=== PATIENT | female | born 1955 | race Caucasian/White ===

== ENCOUNTER 2022-05-20 14:45 | Outpatient (CLI) | payer MEDICARE, OTHER, SELFPAY ==
--- NOTE | 2022-05-20 15:00 | USCV_ITS ---
Karon Ervin Age: 67 Gender: F : 1955 Exam Date: 05/20/2022 15:27 Ordering Phys: Navarro Soares MD ([email or web address]) Technologist: Exam Location: [facility] [place] Indication: chest pain BP: 157 / 80 HR: 67 Rhythm: Sinus Technical Quality: Adequate MEASUREMENTS (Male / Female) Normal Values 2D ECHO LV Diastolic Diameter PLAX 4.0 cm 4.2 - 5.9 / 3.9 - 5.3 cm LV Systolic Diameter PLAX 2.1 cm IVS Diastolic Thickness 1.4 cm 0.6 - 1.0 / 0.6 - 0.9 cm IVS Systolic Thickness 1.7 cm LVPW Diastolic Thickness 1.4 cm 0.6 - 1.0 / 0.6 - 0.9 cm LVPW Systolic Thickness 1.4 cm LVOT Diameter 2.0 cm LV Ejection Fraction 2D Teich 80.1 % LV Ejection Fraction MOD 2C 57.9 % LV Ejection Fraction 2C AL 59.4 % LA Diameter 4.3 cm Aorta at Sinotubular Diameter 2.5 cm M-MODE Aortic Annulus Diameter 3.5 cm LA Ao Ratio MM 1.3 MV E Point Septal Separation 1.1 cm DOPPLER AV Peak Velocity 149.7 cm/s LVOT Peak Velocity 110.0 cm/s AV Area Cont Eq vti 2.5 cm squared AV Area Cont Eq pk 2.4 cm squared MV Area PHT 5.0 cm squared Mitral E to A Ratio 1.1 MV E' Velocity 60.5 cm/s Mitral E to MV E' Ratio 12.1 Mitral E to LV E' Lateral Ratio 11.3 Mitral E to LV E' Septal Ratio 13.3 TR Peak Velocity 340.0 cm/s TR Peak Gradient 46.2 mmHg TV Peak E Velocity 102.0 cm/s Right Atrial Pressure 3.0 mmHg Pulmonary Artery Systolic Pressu 49.2 mmHg RV Acceleration Time 0.2 s FINDINGS Left Ventricle Normal left ventricular size and systolic function, EF 66 %. Mild left ventricular hypertrophy. No regional wall motion abnormalities. Grade II/IV diastolic dysfunction, moderately elevated filling pressures. Right Ventricle The right ventricle is normal in size and function. Right Atrium The right atrium is normal in size. Left Atrium Mildly increased left atrial size. Mitral Valve Trace mitral valve regurgitation. Aortic Valve Thickened aortic valve. Tricuspid Valve Trace tricuspid valve regurgitation. Pulmonic Valve Pulmonic valve not well visualized. Pericardium Normal pericardium without effusion. Aorta Normal ascending aorta dimension. IVC Inferior vena cava not visualized. CONCLUSIONS Normal left ventricular size and systolic function, EF 66 %. Mild left ventricular hypertrophy. No regional wall motion abnormalities. Grade II/IV diastolic dysfunction, moderately elevated filling pressures. Thickened aortic valve. Trace of mitral and tricuspid regurgitation There is no pericardial effusion. There are no intracardiac masses. No similar previous studies are available for comparison Dr Navarro Soares MD [facility] (Electronically Signed) Final Date: 21 May 2022 09:54 S
== END 2022-05-20 14:46 | disposition home or self-care (01) ==
LOC: RAD 14:54
PROVIDERS: PCP Family Medicine; Visit Provider Internal Medicine Cardiovascular Disease
DX: I25.810 Atherosclerosis of coronary artery bypass graft(s) without angina pectoris (principal); R06.09 Other forms of dyspnea; Z95.1 Presence of aortocoronary bypass graft; I11.9 Hypertensive heart disease without heart failure; I35.8 Other nonrheumatic aortic valve disorders; I34.0 Nonrheumatic mitral (valve) insufficiency; I07.1 Rheumatic tricuspid insufficiency
CPT/HCPCS: 93306; 99215

== ENCOUNTER → 2022-07-29 09:27 | Outpatient (BNVA) | payer MEDICARE, OTHER, SELFPAY | PROVIDERS: PCP Family Medicine; Visit Provider Family Medicine | DX: E78.5 Hyperlipidemia, unspecified (principal); I10 Essential (primary) hypertension; I25.810 Atherosclerosis of coronary artery bypass graft(s) without angina pectoris; R53.83 Other fatigue; I25.119 Atherosclerotic heart disease of native coronary artery with unspecified angina pectoris | CPT/HCPCS: 80053; 80061; 84443; 85025 ==

== ENCOUNTER 2023-01-13 13:18 | Outpatient (CLI) | payer MEDICARE, OTHER, SELFPAY ==
--- NOTE | 2023-01-13 13:26 | MM_ITS ---
WS: [id number] BILATERAL 3D TOMOSYNTHESIS DIGITAL SCREENING MAMMOGRAPHY WITH CAD CLINICAL INFORMATION: Z00.00 - Encounter for general adult medical examination ... HISTORY: Screening mammogram. No current complaints. COMPARISON: 2009 TECHNIQUE: Bilateral CC and MLO views. FINDINGS: Scattered fibroglandular densities bilaterally. Nodular breast parenchyma bilaterally RIGHT greater t rubin LEFT. No suspicious focal mass, asymmetry, calcifications, or architectural distortion. No eviden ce of malignancy. Punctate and lucent centered calcifications. IMPRESSION: MM/[place] [id number] BI-RADS: 2-Benign FOLLOW UP: 1 Year Follow-up Recommend return to annual screening mammography.
== END 2023-01-13 13:19 | disposition home or self-care (01) ==
LOC: RAD 13:18
PROVIDERS: PCP Family Medicine; Visit Provider Family Medicine
DX: Z12.31 Encounter for screening mammogram for malignant neoplasm of breast (principal)
CPT/HCPCS: 77063; 77067

== ENCOUNTER 2023-02-25 09:38 | Outpatient (CLI) | payer MEDICARE, OTHER, SELFPAY ==
--- NOTE | 2023-02-25 09:45 | XR_ITS ---
WS: [id number] Exam: XR chest 2V* [id number] Date/Time of Exam: 02/25/2023 10:37 AM Reason For Exam: cough No priors. The lungs are clear and fully expanded. Unremarkable cardiomediastinal silhouette. Signs of previous CABG surgery. No pleural effusions. Dextroscoliosis of the T-spine. Increased kyphosis. IMPRESSION: 1. No acute cardiopulmonary finding.
== END 2023-02-25 09:39 | disposition home or self-care (01) ==
PROVIDERS: PCP Family Medicine; Visit Provider Family Medicine
DX: R06.02 Shortness of breath (principal); R52 Pain, unspecified; R53.83 Other fatigue; Z95.1 Presence of aortocoronary bypass graft
CPT/HCPCS: 71046; 80053; 83880; 84443; 84550; 85025; 86140

== ENCOUNTER 2023-09-28 12:07 | Emergency (ER) | payer MEDICARE, OTHER, SELFPAY ==
[2023-09-28 12:37] VITALS: BP 162/67; PULSE 58; RESP 18; TEMP 36.8; O2SAT 98; BMI 33.3
--- NOTE | 2023-09-28 12:42 | CTR_ITS ---
PROCEDURE INFORMATION: Exam: CT Chest Without Contrast; Diagnostic Exam date and time: 09/28/2023 12:54 PM Age: 68 years old Clinical indication: Injury or trauma; Fall; Blunt trauma (contusions or hematomas); Prior surgery; Surgery date: 6+ months; Surgery type: Heart, gb; Additional info: Traumatic left chest pain TECHNIQUE: Imaging protocol: Diagnostic computed tomography of the chest without contrast. Radiation optimization: All CT scans at this facility use at least one of these dose optimization techniques: automated exposure control; mA and/or kV adjustment per patient size (includes targeted exams where dose is matched to clinical indication); or iterative reconstruction. COMPARISON: CR XR chest 2V* [id number] 02/25/2023 10:38 AM RADIATION DOSE METRICS: Total DLP (mGy-cm): 737.27 FINDINGS: Trachea: Imaged portions of the distal trachea, as well as right and left mainstem bronchi are patent. Lungs: Small nodular calcification in the right upper lobe consistent with a healed granuloma. Linear density in the right lower lobe consistent with atelectasis or scarring. Dependent density in the left lower lobe towards the costophrenic angle suggesting small area of atelectasis with adjacent small pleural effusion of up to 1 cm thickness. Pleural spaces: No pneumothorax identified. Trace left-sided pleural effusion. Heart: The heart is not enlarged. No pericardial effusion. Coronary arteries: Findings of prior CABG. Coronary artery atherosclerosis. Mediastinal space: No pneumomediastinum evident. Lymph nodes: Within the limits of noncontrast technique, no definite mediastinal or hilar adenopathy identified. Vasculature: The thoracic aorta is not enlarged. Bones/joints: Skeletal windows demonstrate slight anterior wedge compression deformity of the T6, and T10 through T12 vertebral bodies. These are favored chronic. A T12 superior endplate Schmorl's node is present. Findings consistent with a vertebral body hemangioma in T11. There is trace retrolisthesis of T12 on L1 prior median sternotomy. A nonsegmental fracture of the left 5th rib (0426) and 6th rib are noted anterolaterally. Soft tissues: There is left lateral chest wall contusion overlying the site of rib fracture. . 3 Other findings: Imaged upper abdomen demonstrates no acute appearing abnormality. A right adrenal 3.1 x 2.5 cm nodule is present measuring +13 HU, indeterminate. Surgical clips consistent with a prior cholecystectomy. CT/CT chest wo con [id number] IMPRESSION: 1. Acute nonsegmental fractures of the anterolateral aspect of the left 5th and 6th ribs with overlying soft tissue contusion. 2. Trace left-sided pleural effusion, no pneumothorax identified. 3. Right adrenal 3.1 x 2.5 cm nodule. In the absence of prior studies to confirm satisfactory correction stability, would recommend an adrenal washout protocol CT on a nonemergent basis. Alternatively, chemical shift MRI could be considered. COMMENTS: Consistent with the [employer]'s Incidental Findings Committee white paper (J Am Demetrio Radiol 2017): For any incidental adrenal lesion greater than or equal to 1 cm but less than or equal to 4 cm classified in this report as benign, likely benign, or containing fat (including classification as an adenoma or myelolipoma), no follow-up imaging is recommended per consensus recommendations based on imaging criteria. Further lab evaluation could be pursued if warranted based on clinical findings.
[2023-09-28 12:48] LABS: Basophils # 0.1 10^3/uL (0.0-0.1); Basophils % 1.1 %; Eosinophils # 0.2 10^3/uL (0.0-0.8); Eosinophils % 2.3 %; Hematocrit 44.1 % (36-47); Lymphocytes # 1.7 10^3/uL (0.8-4.8); Lymphocytes % 16.6 %; Mean Corpuscular Hemoglobin 29.1 pg (27-33); Mean Corpuscular Volume 85.5 fl (85-98); Mean Platelet Volume 10.8 fL (7.4-10.4); Monocytes # 0.6 10^3/uL (0.2-0.9); Monocytes % 6.4 %; Neutrophils # 7.34 10^3/uL (1.8-7.7); Neutrophils % 73.2 %; Nucleated Red Blood Cells % 0 %; Platelet Count 320 10^3/cmm (157-399); Red Blood Count 5.16 10^6/uL (3.85-5.65); White Blood Count 10.02 10^3/uL (3.29-11.43)
--- NOTE | 2023-09-28 12:59 | ED_ITS ---
HPI - Fall 2 General: Chief Complaint: Abdominal Pain Stated Complaint: abd pain Time Seen by Provider: 09/28/23 12:42 History of Present Illness: 68-year-old female with a history of cor onary artery disease and hypertension who presents to the emergency room with left-sided anterior and lateral rib pain after a fall a couple of days ago. She has had a CABG in the past and she was concerned she might have dislocated some of the hardware. Says it hurts to breathe but is not overtly short of breath. No cough. No fever. She did not hit her head. No altered mental status. No focal motor deficits. Review of Systems 2 Narrative: Constitutional symptoms: Negative except as documented in HPI. Skin symptoms: Negative except as documented in HPI. Eye symptoms: Negative except as documented in HPI. ENMT symptoms: Negative except as documented in HPI. Respiratory symptoms: Negative except as documented in HPI. Cardiovascular symptoms: Negative except as documented in HPI. Gastrointestinal symptoms: Negative except as documented in HPI. Genitourinary symptoms: Negative except as documented in HPI. Musculoskeletal symptoms: Negative except as documented in HPI. Neurologic symptoms: Negative except as documented in HPI. Psychiatric symptoms: Negative except as documented in HPI. Endocrine symptoms: Negative except as documented in HPI. PFSH ED 2 PFSH: Medical History Osteoarthritis Family hx of colon cancer Dyspareunia CAD (coronary atherosclerotic disease) Obesity SOB (shortness of breath) Fatigue HTN (hypertension) Surgical History S/P CABG (coronary artery bypass graft) History of tubal ligation H/O: hysterectomy History of dilation and curettage Family History Father Hypertension CAD (coronary artery disease) Dementia Brother Cancer Mother CAD (coronary artery disease) Family/Other CAD (coronary artery disease) Cancer Brother Cancer Chronic kidney disease (CKD) Brother Cancer Sister Cancer Denies family history of Diabetes Clotting disorder Suicide Anesthesia complication Bleeding disorder Lung disease Stroke Social History Smoking and tobacco/nicotine status: never used tobacco/nicotine Alcohol intake: never Substance/Drug Use: never Household members: spouse Marital status: service: No Current occupational status: employed Current gender identity: Female Radha/Methodist: Taoism Physical Exam 2 Narrative: EXAM NARRATIVE: General: Alert, no acute distress. Skin: Warm, dry. Head: Normocephalic, atraumatic. Neck: Supple, trachea midline. Eye: Extraocular movements are intact. Ears, nose, mouth and throat: mucosa moist. Cardiovascular: Regular, Normal peripheral perfusion. Respiratory: Lungs are clear to auscultation, respirations are non-labored, breath sounds are equal, Symmetrical chest wall expansion. Tenderness over the left lateral and anterior middle ribs. No obvious deformity. Gastrointestinal: Soft, Nontender, Non distended, Normal bowel sounds. Musculoskeletal: Normal ROM, no deformity. Neurological: Alert and oriented, No focal neurological deficit observed. Psychiatric: Cooperative, appropriate mood & affect. Course 2 Vital Signs: Vital signs: Vital Signs Temperature 98.2 F 09/28/23 12:37 Pulse Rate 58 L 09/28/23 13:05 Respiratory Rate 18 09/28/23 12:37 Blood Pressure 137/93 09/28/23 13:05 Pulse Oximetry 98 09/28/23 13:05 Oxygen Delivery Me thod Room Air 09/28/23 13:05 MDM - Fall Medical Decision Making Medical decision making: Differential diagnosis including but not limited to and based on the above HPI, review of systems and physical exam: Patient with traumatic chest pain. CT without contrast ordered to rule out rib fractures and pneumothorax or hemothorax or pulmonary contusion. Orders placed to evaluate differential diagnosis based on the above differential, HPI and physical exam CT of the chest without contrast: This was reviewed and interpreted by myself the emergency room physician. I also reviewed the radiology report. Radiology report listed below. 1. Acute nonsegmental fractures of the anterolateral aspect of the left 5th and 6th ribs with overlying soft tissue contusion. 2. Trace left-sided pleural effusion, no pneumothorax identified. 3. Right adrenal 3.1 x 2.5 cm nodule. In the absence of prior studies to confirm satisfactory shelter stability, would recommend an adrenal washout protocol CT on a nonemergent basis. Alternatively, chemical shift MRI could be considered. I reviewed the patient's medical record. Reexamination: Patient remained stable. No increased work of breathing. She continues to have pain in her left ribs. No altered mental status. No focal motor deficits. We discussed the pulmonary nodule and that she needs repeat imaging. Discussed incentive spirometry. Assessment and plan: Rib fractures Pulmonary nodule - 1999+ Incentive spirometry ? [place] in the emergency room. Incentive spirometry. - Discharged home - Discussed plan with patient. Answered any questions. - Evaluation and treatment of this problem were appropriate in the emergency setting. Lab Data 09/28/23 12:37 09/28/23 12:[address] 09/28/23 12:42 IMPRESSION: 1. Acute nonsegmental fractures of the anterolateral aspect of the left 5th and 6th ribs with overlying soft tissue contusion. 2. Trace left-sided pleural effusion, no pneumothorax identified. 3. Right adrenal 3.1 x 2.5 cm nodule. In the absence of prior studies to confirm satisfactory intermodal truck driver stability, would recommend an adrenal washout protocol CT on a nonemergent basis. Alternatively, chemical shift MRI could be considered. COMMENTS: Consistent with the [employer]'s Incidental Findings Committee white paper (J Am Demetrio Radiol 2017): For any incidental adrenal lesion greater than or equal to 1 cm but less than or equal to 4 cm classified in this report as benign, likely benign, or containing fat (including classification as an adenoma or myelolipoma), no follow-up imaging is recommended per consensus recommendations based on imaging criteria. Further lab evaluation could be pursued if warranted based on clinical findings. Laboratory Results WBC 10.02 10^3/uL (3.29-11.43) 09/28/23 12:37 RBC 5.16 10^6/uL (3.85-5.65) 09/28/23 12:37 Hgb 15.00 g/dL (11.27-16.99) 09/28/23 12:37 Hct 44.1 % (36-47) 09/28/23 12:37 MCV 85.5 fl (85-98) 09/28/23 12:37 MCH 29.1 pg (27-33) 09/28/23 12:37 MCHC 34.0 g/dL (30-55) 09/28/23 12:37 RDW 13.0 % (12.1-15.1) 09/28/23 12:37 Plt Count 320 10^3/cmm (157-399) 09/28/23 12:37 MPV 10.8 fL (7.4-10.4) H 09/28/23 12:37 Neut % (Auto) 73.2 % 09/28/23 12:37 Lymph % (Auto) 16.6 % 09/28/23 12:37 Lamb % (Auto) 6.4 % 09/28/23 12:37 Eos % (Auto) 2.3 % 09/28/23 12:37 Baso % (Auto) 1.1 % 09/28/23 12:37 Neut # (Auto) 7.34 10^3/uL (1.8-7.7) 09/28/23 12:37 Lymph # (Auto) 1.7 10^3/uL (0.8-4.8) 09/28/23 12:37 Lamb # (Auto) 0.6 10^3/uL (0.2-0.9) 09/28/23 12:37 Eos # (Auto) 0.2 10^3/uL (0.0-0.8) 09/28/23 12:37 Baso # (Auto) 0.1 10^3/uL (0.0-0.1) 09/28/23 12:37 Nucleated RBC % (auto) 0 % 09/28/23 12:37 Nucleated RBCs # 0.0 /100WBC 09/28/23 12:37 Sodium Cancelled 09/28/23 12:37 Potassium Cancelled 09/28/23 12:37 Chloride Cancelled 09/28/23 12:37 Carbon Dioxide Cancelled 09/28/23 12:37 Anion Gap Cancelled 09/28/23 12:37 BUN Cancelled 09/28/23 12:37 Creatinine Cancelled 09/28/23 12:37 GFR Calculation Cancelled 09/28/23 12:37 Glucose Cancelled 09/28/23 12:37 Calculated Osmolality Cancelled 09/28/23 12:37 Calcium Cancelled 09/28/23 12:37 Total Bilirubin Cancelled 09/28/23 12:37 AST Cancelled 09/28/23 12:37 ALT Cancelled 09/28/23 12:37 Alkaline Phosphatase Cancelled 09/28/23 12:37 Total Protein Cancelled 09/28/23 12:37 Albumin Cancelled 09/28/23 12:37 Globulin Cancelled 09/28/23 12:37 Lipase Cancelled 09/28/23 12:37 All radiology interpretation(s) finalized by discharge Discharge Plan Discharge Patient Disposition: Home Clinical Impression: Incidental pulmonary nodule Rib fractures Qualifiers: Encounter type: initial encounter Fracture type: closed Laterality: left Q ualified Code(s): S22.42XA - Multiple fractures of ribs, left side, initial encounter for closed fracture Condition: Stable Prescriptions: New hydrocodone-acetaminophen 5-325 mg tablet 1 tab PO Q6H PRN (Reason: pain) Qty: 30 0RF Miralax 17 gram/dose powder 17 g PO DAILY Qty: 510 0RF Rx Instructions: Take 1 scoop daily while taking pain medications. diclofenac sodium 50 mg tablet,delayed release (DR/EC) 50 mg PO Q12H Qty: 20 0RF No Action aspirin [Adult Low Dose Aspirin] 81 mg tablet,delayed release (DR/EC) 81 mg PO DAILY metoprolol tartrate 50 mg tablet 50 mg PO BID 30 Days Qty: 60 11RF prednisone 20 mg tablet 20 mg PO DAILY Qty: 5 0RF Rx Instructions: take with food. meloxicam 15 mg tablet See Rx Instructions .ROUTE .COMPLEX Qty: 90 3RF Dose Instruction: TAKE 1 TABLET BY MOUTH EVERY DAY Rx Instructions: TAKE 1 TABLET BY MOUTH EVERY DAY citalopram 20 mg tablet See Rx Instructions .ROUTE .COMPLEX Qty: 90 11RF Dose Instruction: TAKE 1 TABLET BY MOUTH EVERY DAY Rx Instructions: TAKE 1 TABLET BY MOUTH EVERY DAY albuterol sulfate [Ventolin HFA] 90 mcg/actuation HFA aerosol inhaler 2 puff inhalation Q6H PRN (Reason: shortness of breath or wheezing) Qty: 8.5 11RF Mounjaro 2.5 mg/0.5 mL pen injector 2.5 mg SUBCUT .weekly Qty: 2 11RF losartan 100 mg tablet 100 mg PO DAILY Qty: 30 11RF Rx Instructions: MUST make follow-up for further refills alprazolam 0.5 mg tablet 0.5 mg PO DAILY Qty: 30 5RF nitroglycerin 0.4 mg tablet, sublingual See Rx Instructions .ROUTE .COMPLEX Qty: 25 0RF Dose Instruction: DISSOLVE ONE TABLET UNDER THE TONGUE EVERY 5 MINUTES NEEDED FOR CHEST PAIN. DO NOT EXCEED A TOTAL OF 3 DOSES IN 15 MINUTES Rx Instructions: DISSOLVE ONE TABLET UNDER THE TONGUE EVERY 5 MINUTES NEEDED FOR CHEST PAIN. DO NOT EXCEED A TOTAL OF 3 DOSES IN 15 MINUTES hydrochlorothiazide 25 mg tablet 25 mg PO QAM Qty: 90 3RF Discharge Orders: Discharge ED (Routine); Ordered 09/28/23 Ordered By: Evette Crow Referrals: Josh Polk MD [Primary Care Provider] - 4-7 days Discharge Diet: Usual diet Discharge Activity: Increase activity as tolerated Patient Instructions: How to Use an Incentive Spirometer (ED), Rib Fracture (ED), Opioid Safety, Pain Management Activity Restrictions/Additional Instructions: Please use your incentive spirometer 3-4 times a day. A good time to do this is when your pain medication is working so that you can get good deep breaths. This will prevent pneumonia A pulmonary nodule was seen on imaging. This will need follow up imaging with your primary provider. Please schedule an appointment concerning this. You have been screened and evaluated and felt safe for discharge. Health conditions do change or evolve sometimes and as such it is important that you follow up with your Primary Doctor to be re checked, 3-5 days is a general good time frame for follow up. You are always welcome to return to the ED for re assessment if your symptoms are worsening or you have new concerns Coding Level of Care Code ED Shoulder Puncher for Parish Parikh
[2023-09-28 13:05] VITALS: BP 137/93; PULSE 58; O2SAT 98
[2023-09-28] MEDS: HYDROcodone-acetaminophen 10-325 mg Tablet 1 TAB PO (13:11)
[2023-09-28] MEDS: ondansetron 4 MG Tablet PO (13:16)
[2023-09-28 16:02] VITALS: BP 137/93; PULSE 58; RESP 18; TEMP 36.8; O2SAT 98
== END 2023-09-28 16:03 | disposition home or self-care (01) ==
PROVIDERS: Emergency Medicine; Emergency Provider Emergency Medicine; PCP Family Medicine
DX: S22.42XA Multiple fractures of ribs, left side, initial encounter for closed fracture (principal); R91.1 Solitary pulmonary nodule; Z79.82 Long term (current) use of aspirin; Z79.85 Long-term (current) use of injectable non-insulin antidiabetic drugs; I25.10 Atherosclerotic heart disease of native coronary artery without angina pectoris; I10 Essential (primary) hypertension; Z95.1 Presence of aortocoronary bypass graft; W19.XXXA Unspecified fall, initial encounter
CPT/HCPCS: 36415; 71250; 85025; 99284; Q0162

== ENCOUNTER 2024-10-10 10:20 | Emergency (ER) | payer MEDICARE, OTHER, SELFPAY ==
--- NOTE | 2024-10-10 10:21 | XRR_ITS ---
PROCEDURE INFORMATION: Exam: XR Right Knee Exam date and time: 10/10/2024 10:34 AM Age: 69 years old Clinical indication: Injury or trauma; Swelling (edema); Right; RT knee pain x 1 week; [place] pop while walking; Pain/swelling sinc TECHNIQUE: Imaging protocol: Radiologic exam of the right knee. Views: 3 views. COMPARISON: No relevant prior studies available. FINDINGS: Bones/joints: Surgical clips are seen medial to the proximal tibia. No fractures or dislocations. Soft tissues: Normal. XR/XR knee RT 3V* [id number] IMPRESSION: No acute findings.
[2024-10-10 10:23] VITALS: BP 176/65; PULSE 61; TEMP 36.9; O2SAT 97; BMI 33.3
--- OUTSIDE RECORDS SUMMARY | 2024-10-10 10:32 | XMS_ITS | Clinical Summary ---
Author Organization [facility] Address [address] Johnson: Epic Prelude ADT [place] [address] Care Team Providers Care Particle Board Supervisor Name Role Phone Salinas Martines MD Primary Care Provider + Allergies No known active allergies Active Problems Problem Noted Date Diagnosed Date HTN (hypertension), benign 11/28/2014 Anxiety 11/28/2014 Atherosclerosis of coronary artery bypass graft of [place] heart without angina pectoris 11/28/2014 Hx of CABG 11/28/2014 Family history of colon cancer 11/28/2014 Obesity (BMI 35.0-39.9 without comorbidity) 11/12 Family History Medical History Relation Name Comments Colon Cancer Brother 1 Healthy Father Healthy Mother Relation Name Status Comments Brother 1 Brother 2 Father Mother Social History Tobacco Use Types Packs/Day Years Used Date Smoking Tobacco: Never Comments Unknown Sex and Gender Information Value Date Recorded Sex Assigned at Not on file 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 Gender Identity Not on file Sexual Orientation Not on file Last Filed Vital Signs Vital Sign Reading Time Taken Comments Blood Pressure 160/96 05/15/2015 11:44 AM BREAKER OPERATOR Pulse 81 05/15/2015 11:44 AM BREAKER OPERATOR Temperature - - Respiratory Rate - - Oxygen Saturation - - Inhaled Oxygen Concentration - - Weight 99.7 kg (219 lb 14.4 oz) 016 11:44 AM BREAKER OPERATOR Height 165.1 cm (5' 5 ) 05/15/2015 11:4 4 AM BREAKER OPERATOR Body Mass Index 36.59 05/15/2015 11:44 AM BREAKER OPERATOR Plan of Treatment Health Maintenance Due Date Last Done Comments DTAP/TDAP/TD VACCINES (1 - Tdap) 1973 BREAST CANCER SCREENING 1994 COLORECTAL SCREENING 1999 Colorectal Cancer Screening 1999 FIT-DNA Q 3 years 1999 FIT/FOBT Q 1 year 1999 Flex Sig/CT Colonography Q 5 years 1999 PNEUMOCOCCAL VACCINE 50+ YEARS (1 of 1 - PCV) 03/06/20 04 ZOSTER VACCINE (1 of 2) 2004 OSTEOPOROSIS SCREENING 2019 INFLUENZA VACCINE (#1) 2023 RSV VACCINE (60+ or ) (1 - 1-dose 75+ series) 2029 Care Teams Particle Board Supervisor Relationship Specialty Start Date End Date Salinas Martines MD [address] [phone] PCP - General Family Practice 02/27/15
--- OUTSIDE RECORDS SUMMARY | 2024-10-10 10:32 | XMS_ITS | Encounter Summary ---
Author Organization [facility] Address [address] [place] [address] Care Team Providers Care Sailmaker Name Role Phone Salinas Martines MD Primary Care Provider + Encounter Details Date Type Department Care Team (Latest Contact Info) Description 07/06/2003 Outpatient Historical [facility] Medicine[address] [phone] Brock Kemp MD [address] [place] [address] ALLERGY, UNSPECIFIED (Primary Dx); URIN TRACT INFECTION NOS Social History Tobacco Use Types Packs/Day Years Used Date Smoking Tobacco: Never Assessed Comments Unknown Sex and Gender Information Value Date Recorded Sex Assigned at Not on file 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
--- OUTSIDE RECORDS SUMMARY | 2024-10-10 10:32 | XMS_ITS | Encounter Summary ---
Author Organization [facility] Address [address] [place] [address] Care Team Providers Care Thermo Processor Name Role Phone Salinas Martines MD Primary Care Provider + Encounter Details Date Type Department Care Team (Latest Contact Info) Description 08/27/2001 Outpatient Historical [facility] Medicine[address] [phone] Israel Gomes MD [address] [facility] [facility] [address] [place] [address] OTHER MALAISE AND FATIGUE (Primary Dx); PALPITATIONS; HYPERTENSION NOS; ALLERGY, UNSPECIFIED Social History Tobacco Use Types Packs/Day Years Used Date Smoking Tobacco: Never Assessed Comments Unknown Sex and Gender Information Value Date Recorded Sex Assigned at Not on file Legal Sex Female 5:[address] Gender Identity Not on file Sexual Orientation Not on file documented as of this encounter Plan of Treatment Not on file documented as of this encounter Visit Diagnoses Diagnosis Other malaise and fatigue- Primary Palpitations Unspecified essential hypertension Allergy, unspecified not elsewhere classified documented in this encounter Care Teams Thermo Processor Relationship Specialty Start Date End Date Salinas Martines MD [address] [facility] [address] [place] [phone] PCP - General Family Practice 02/27/15 documented as of this encounter
--- OUTSIDE RECORDS SUMMARY | 2024-10-10 10:32 | XMS_ITS | Encounter Summary ---
Author Organization [facility] Address [address] [place] [address] Care Team Providers Care Director Of Product Development Name Role Phone Salinas Martines MD Primary Care Provider + Encounter Details Date Type Department Care Team (Latest Contact Info) Description 10/14/2001 Outpatient Historical [facility] Medicine[address] [phone] Steffen Desir MD [address] [place] [phone] ACUTE TONSILLITIS (Primary Dx) Social History Tobacco Use Types Packs/Day Years Used Date Smoking Tobacco: Never Assessed Comments Unknown Sex and Gender Information Value Date Recorded Sex Assigned at Not on file 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
--- OUTSIDE RECORDS SUMMARY | 2024-10-10 10:32 | XMS_ITS | Clinical Summary ---
Author Organization [facility] Address [address] [place] [address] Care Team Providers Care Test Development Engineer Name Role Phone Salinas Martines MD Primary Care Provider + Allergies No known active allergies Medications sertraline (ZOLOFT) 100 mg tablet Take 100 mg by mouth daily. Active aspirin (FOSTER CHEWABLE) 81 mg Tablet, Chewable Take 81 mg by mouth daily. Active atorvastatin (LIPITOR) 20 mg tablet Take 1 Tablet (20 mg) by mouth Daily LATE. 30 Tablet 5 12/02/2014 Active amLODIPine (NORVASC) 10 mg tabletIndicatio ns:HTN (hypertension), benign Take 1 Tablet (10 mg) by mouth daily. 30 Tablet 11 05/24/2015 Active diclofenac sodium (VOLTAREN) 75 mg Tablet, Delayed Release (E.C.) Take 1 Tablet (75 mg) by mouth 2 times daily as needed for Pain. 60 Tablet 1 02/22/2016 Active hydroCHLOROthia zide 25 mg tablet Take 1 Tablet (25 mg) by mouth daily. 90 Tablet 3 04/03/2016 Active losartan (COZAAR) 50 mg tablet Take 2 Tablets (100 mg) by mouth daily. 60 Tablet 11 07/24/2016 Active Active Problems Problem Noted Date Diagnosed Date HTN (hypertension), benign 11/28/2014 Anxiety 11/28/2014 Atherosclerosis of coronary artery bypass graft of [place] heart without angina pectoris 11/28/2014 Hx of CABG 11/28/2014 Family history of colon cancer 11/28/2014 Obesity (BMI 35.0-39.9 without comorbidity) 11/12 Family History Medical History Relation Name Comments Colon Cancer Brother Healthy Father Healthy Mother Relation Name Status Comments Brother Father Mother Social History Tobacco Use Types Packs/Day Years Used Date Smoking Tobacco: Never Comments No Sex and Gender Information Value Date Recorded Sex Assigned at Not on file Legal Sex Female 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 MANAGER Gender Identity Not on file Sexual Orientation Not on file Last Filed Vital Signs Vital Sign Reading Time Taken Comments Blood Pressure 160/96 05/15/2015 11:44 AM DEPUTY PROGRAM MANAGER Pulse 81 05/15/2015 11:44 AM DEPUTY PROGRAM MANAGER Temperature - - Respiratory Rate - - Oxygen Saturation 98% 05/15/2015 11: 44 AM DEPUTY PROGRAM MANAGER Inhaled Oxygen Concentration - - Weight 99.7 kg (219 lb 14.4 oz) 016 11:44 AM DEPUTY PROGRAM MANAGER Height 165.1 cm (5' 5 ) 05/15/2015 11:4 4 AM DEPUTY PROGRAM MANAGER Body Mass Index 36.59 05/15/2015 11:44 AM DEPUTY PROGRAM MANAGER Plan of Treatment Health Maintenance Due Date Last Done Comments DTAP/TDAP/TD VACCINES (1 - Tdap) 1973 BREAST CANCER SCREENING 1994 COLORECTAL SCREENING 1999 Colorectal Cancer Screening 1999 FIT-DNA Q 3 years 1999 FIT/FOBT Q 1 year 1999 Flex Sig/CT Colonography Q 5 years 1999 PNEUMOCOCCAL VACCINE 50+ YEARS (1 of 1 - PCV) 03/06/20 04 ZOSTER VACCINE (1 of 2) 2004 RSV VACCINE (60+ or ) (1 - Risk 60-74 years 1-dose series) 2014 OSTEOPOROSIS SCREENING 2019 INFLUENZA VACCINE (#1) 2023 Preventative Visit- Commercial 04/14/2024 11/28/2014 Insurance BS Care Teams Test Development Engineer Relationship Specialty Start Date End Date Salinas Martines MD [address] [phone] PCP - General Family Practice 02/27/15
--- OUTSIDE RECORDS SUMMARY | 2024-10-10 10:33 | XMS_ITS | Encounter Summary ---
Author Organization [facility] Address [address] [place] [address] Care Team Providers Care Iron Miner Blasting Name Role Phone Salinas Martines MD Primary Care Provider + Encounter Details Date Type Department Care Team (Latest Contact Info) Description 01/16/2001 Outpatient Historical [facility] Family Medicine- [address] [phone] Israel Gomes MD [address] [facility] [address] [place] [address] Unspecified essential hypertension (Primary Dx); Acute frontal sinusitis Social History Tobacco Use Types Packs/Day Years Used Date Smoking Tobacco: Never Assessed Comments Unknown Sex and Gender Information Value Date Recorded Sex Assigned at Not on file 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
--- OUTSIDE RECORDS SUMMARY | 2024-10-10 10:33 | XMS_ITS | Encounter Summary ---
Author Organization [facility] Address [address] [place] [address] Care Team Providers Care Tap Grinder Name Role Phone Salinas Martines MD Primary Care Provider + Encounter Details Date Type Department Care Team (Latest Contact Info) Description 07/30/1999 Outpatient Historical [facility] Medicine[address] [phone] Israel Gomes MD [address] [facility] [address] [place] [address] Otalgia, unspecified (Primary Dx); Allergy, unspecified not elsewhere classified; Other malaise and fatigue Social History Tobacco Use Types Packs/Day Years Used Date Smoking Tobacco: Never Assessed Comments Unknown Sex and Gender Information Value Date Recorded Sex Assigned at Not on file 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
--- OUTSIDE RECORDS SUMMARY | 2024-10-10 10:33 | XMS_ITS | Encounter Summary ---
Author Organization [facility] Address [address] [place] [address] Care Team Providers Care Sueding And Buffing Machine Operator Name Role Phone Salinas Martines MD Primary Care Provider + Encounter Details Date Type Department Care Team (Latest Contact Info) Description 04/11/1999 Outpatient Historical [facility] Medicine[address] [phone] Israel Gomes MD [address] [facility] [address] [place] [address] Influenza with other respiratory manifestations (Primary Dx); Unspecified infectious and parasitic diseases; Conjunctivitis unspecified Social History Tobacco Use Types Packs/Day Years Used Date Smoking Tobacco: Never Assessed Comments Unknown Sex and Gender Information Value Date Recorded Sex Assigned at Not on file Legal Sex 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 Gender Identity Not on file Sexual Orientation Not on file documented as of this encounter Plan of Treatment Not on file documented as of this encounter Visit Diagnoses Diagnosis Influenza with other respiratory manifestations- Primary Unspecified infectious and parasitic diseases Conjunctivitis unspecified Conjunctivitis, unspecified documented in this encounter Care Teams Sueding And Buffing Machine Operator Relationship Specialty Start Date End Date Salinas Martines MD [address] [facility] [address] [place] [phone] PCP - General Family Practice 02/27/15 documented as of this encounter
--- OUTSIDE RECORDS SUMMARY | 2024-10-10 10:33 | XMS_ITS | Encounter Summary ---
Author Organization [facility] Address [address] [place] [address] Care Team Providers Care Ram Press Operator Name Role Phone Salinas Martines MD Primary Care Provider + Encounter Details Date Type Department Care Team (Latest Contact Info) Description 03/19/2000 Outpatient Historical [facility] Medicine[address] [phone] Israel Gomes MD [address] [facility] [address] [place] [address] Esophageal reflux (Primary Dx); Nausea with vomiting; Acute upper respiratory infections of unspecified site; Abdominal pain, unspecified site Social History Tobacco Use Types Packs/Day Years Used Date Smoking Tobacco: Never Assessed Comments Unknown Sex and Gender Information Value Date Recorded Sex Assigned at Not on file Legal Sex Female 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
--- OUTSIDE RECORDS SUMMARY | 2024-10-10 10:33 | XMS_ITS | Encounter Summary ---
Author Organization [facility] Address [address] [place] [address] Care Team Providers Care Gas Operator Name Role Phone Salinas Martines MD Primary Care Provider + Encounter Details Date Type Department Care Team (Latest Contact Info) Description 04/20/2001 Outpatient Historical [facility] Medicine[address] [phone] Israel Gomes MD [address] [facility] [address] [place] [phone] ACUTE BRONCHITIS (Primary Dx); ACUTE FRONTAL SINUSITIS Social History Tobacco Use Types Packs/Day Years Used Date Smoking Tobacco: Never Assessed Comments Unknown Sex and Gender Information Value Date Recorded Sex Assigned at Not on file Legal Sex Female 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
--- OUTSIDE RECORDS SUMMARY | 2024-10-10 10:33 | XMS_ITS | Encounter Summary ---
Author Organization [facility] Address [address] [place] [address] Care Team Providers Care Mental Health Program Director Name Role Phone Salinas Martines MD Primary Care Provider + Encounter Details Date Type Department Care Team (Latest Contact Info) Description 04/02/2000 Outpatient Historical [facility] Medicine[address] [phone] Israel Gomes MD [address] [facility] [address] [place] [address] Nausea alone (Primary Dx); Abdominal pain, unspecified site; Unspecified essential hypertension Social History Tobacco Use Types Packs/Day Years Used Date Smoking Tobacco: Never Assessed Comments Unknown Sex and Gender Information Value Date Recorded Sex Assigned at Not on file 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
--- NOTE | 2024-10-10 11:25 | USR_ITS ---
PROCEDURE INFORMATION: Exam: US Duplex Right Lower Extremity Veins, Limited Exam date and time: 10/10/2024 11:52 AM Age: 69 years old Clinical indication: Pain; Leg, lower; Right; Prior surgery; Surgery date: 6+ months; Surgery type: Unsure of dates. Patient said she had vein removed for heart surgery 20+ years ago; Additional info: Leg pain TECHNIQUE: Imaging protocol: Real-time duplex ultrasound of the right extremity with 2-D monique scale, color Doppler flow and spectral waveform analysis including responses to compression and other maneuvers (when performed) with image documentation. Limited exam was focused on the right lower extremity veins. COMPARISON: CR (LOW EXM, ) 10/10/2024 10:34 AM FINDINGS: Right deep veins: Unremarkable. The common femoral, femoral, proximal profunda femoral and popliteal veins are patent without thrombus. Normal Doppler waveforms. Normal compressibility and/or augmentation response. Superficial veins: Greater saphenous vein at the saphenofemoral junction is patent without thrombus. Soft tissues: Unremarkable. US/[place] [id number] IMPRESSION: No evidence of deep vein thrombosis.
[2024-10-10 11:35] VITALS: BP 157/61; PULSE 63; O2SAT 96
--- NOTE | 2024-10-10 11:38 | W.ED.EXTPRO ---
HPI - Extremity Problem General: Chief complaint: Extremity Problem,Nontraumatic Stated complaint: rt knee inj Time Seen by Provider: 10/10/24 11:01 Source: patient Mode of arrival: ambulatory Limitations: no limitations History of Present Illness: 69-year-old female states that she had injured her right knee going down stairs 2 weeks ago states since then she been having some pain in her right knee. States she also had some swelling in that leg as well. States pain is much worse with walking denies any hip pain denies any fevers Associated symptoms: Deny chest pain, fever(s) or rash Related Data Home Medications ?Medication ?Instructions ?Recorded ?Confirmed aspirin 81 mg tablet,delayed 81 mg PO DAILY 04/15/19 02/25/23 release (Adult Low Dose Aspirin) Previous Rx's ?Medication ?Instructions ?Recorded meloxicam 15 mg tablet See Rx Instructions .Route 08/30/22 .COMPLEX #90 tabs prednisone 20 mg tablet 20 mg PO DAILY #5 tabs 02/25/23 albuterol sulfate 90 mcg/actuation 2 puff inhalation Q6H PRN 03/11/23 aerosol inhaler (Ventolin HFA) shortness of breath or wheezing #8.5 grams tirzepatide 2.5 mg/0.5 mL 2.5 mg (0.5 mL) SUBCUT .weekly #2 03/11/23 subcutaneous pen injector mL (Mounjaro) nitroglycerin 0.4 mg sublingual See Rx Instructions .Route 06/26/23 tablet .COMPLEX #25 tabs hydrochlorothiazide 25 mg tablet 25 mg PO QAM #90 tabs 09/11/23 diclofenac sodium 50 mg 50 mg PO Q12H #20 tabs 09/28/23 tablet,delayed release hydrocodone 5 mg-acetaminophen 325 1 tab PO Q6H PRN pain #30 tabs 09/28/23 mg tablet polyethylene glycol 3350 17 17 g PO DAILY #510 grams 09/28/23 gram/dose oral powder (Miralax) metoprolol tartrate 50 mg tablet 50 mg PO BID 30 days #60 tabs 03/09/24 citalopram 20 mg tablet See Rx Instructions .Route 05/05/24 .COMPLEX #90 tabs losartan 100 mg tablet 100 mg PO DAILY #30 tabs 05/05/24 alprazolam 0.5 mg tablet 0.5 mg PO DAILY #30 tabs 08/05/24 naproxen 500 mg tablet (Naprosyn) 500 mg PO BID PRN pain #20 tabs 10/10/24 Allergies Allergy/AdvReac Type Severity Reaction Status Date / Time [id number] Reductase Allergy leg pain Verified 10/10/24 10:29 Inhibitor tramadol Allergy ADR-Itching Verified 10/10/24 10:29 Review of Systems Const: Denies: fever(s), chills, body aches or change in appetite ENMT: Denies: throat pain or dental pain Card: Denies: chest pain Resp: Denies: dyspnea GI: Denies: abdominal pain, nausea, vomiting or diarrhea Musc: Reports: extremity pain; Denies: neck pain or back pain Skin/Breast: Denies: rash Neuro: Denies: headache(s) PFSH ED PFSH: Medical History Osteoarthritis Family hx of colon cancer Dyspareunia CAD (coronary atherosclerotic disease) Obesity SOB (shortness of breath) Fatigue HTN (hypertension) Surgical History S/P CABG (coronary artery bypass graft) History of tubal ligation H/O: hysterectomy History of dilation and curettage Family History Father Hypertension CAD (coronary artery disease) Dementia Brother Cancer Mother CAD (coronary artery disease) Family/Other CAD (coronary artery disease) Cancer Brother Cancer Chronic kidney disease (CKD) Brother Cancer Sister Cancer Denies family history of Diabetes Clotting disorder Suicide Anesthesia complication Bleeding disorder Lung disease Stroke Social History Smoking and tobacco/nicotine status: never used tobacco/nicotine Alcohol intake: never Substance/Drug Use: never Household members: spouse Marital status: service: No Current occupational status: employed Current gender identity: Female Radha/Adventist: Mandaen Physical Exam Const: COMMON NORMALS: no acute distress, patient oriented x3 and healthy appearing HENMT: COMMON NORMALS: normocephalic and atraumatic HEAD & SCALP: normocephalic and atraumatic Eye: COMMON NORMALS: conjunctivae normal CONJUNCTIVA: Yes conjunctivae normal Neck/C-Spine: COMMON NORMALS: full ROM and supple Chest: COMMONS NORMALS: normal inspection of the chest Resp: COMMON NORMALS: normal respiratory effort Cardio: COMMON NORMALS: regular rate RATE: regular rate Extremity: COMMON NORMALS: full ROM NARRATIVE EXTREMITY EXAM: Tenderness noted to right knee noted deformity knee is not warm to touch distal pulses intact Neuro: COMMON NORMALS: patient oriented x3, moves all extremities and no focal motor deficits Psych: COMMON NORMALS: mental status grossly normal, Normal thought process present and cooperative THOUGHT PROCESS: Normal thought process present Skin: COMMON NORMALS: no rashes or lesions noted and no wounds GENERAL SKIN EXAM: no rashes or lesions noted Course Vital Signs: Vital signs: Vital Signs Temperature 98.4 F 10/10/24 10:23 Pulse Rate 63 10/10/24 11:35 Blood Pressure 157/61 10/10/24 11:35 Pulse Oximetry 96 10/10/24 11:35 Oxygen Delivery Me thod Room Air 10/10/24 11:35 MDM - Extremity (Nontraumatic) Medical Decision Making Patient presents with right knee pain x-ray shows no fracture ultrasound showed no DVT no signs of septic joint patient stable for discharge patient is follow-up with orthopedics return if worsening. Medical Records I reviewed the patient's medical records. Lab Data Radiology Impressions Knee X-Ray 10/10/24 10:21 IMPRESSION: No acute findings. All radiology interpretation(s) finalized by discharge Discharge Plan Discharge Patient Disposition: Home Clinical Impression: Knee pain, right Condition: Stable Prescriptions: New naproxen [Naprosyn] 500 mg tablet 500 mg PO BID PRN (Reason: pain) Qty: 20 0RF No Action aspirin [Adult Low Dose Aspirin] 81 mg tablet,delayed release (DR/EC) 81 mg PO DAILY prednisone 20 mg tablet 20 mg PO DAILY Qty: 5 0RF Rx Instructions: take with food. meloxicam 15 mg tablet See Rx Instructions .ROUTE .COMPLEX Qty: 90 3RF Dose Instruction: TAKE 1 TABLET BY MOUTH EVERY DAY Rx Instructions: TAKE 1 TABLET BY MOUTH EVERY DAY albuterol sulfate [Ventolin HFA] 90 mcg/actuation HFA aerosol inhaler 2 puff inhalation Q6H PRN (Reason: shortness of breath or wheezing) Qty: 8.5 11RF Mounjaro 2.5 mg/0.5 mL pen injector 2.5 mg SUBCUT .weekly Qty: 2 11RF nitroglycerin 0.4 mg tablet, sublingual See Rx Instructions .ROUTE .COMPLEX Qty: 25 0RF Dose Instruction: DISSOLVE ONE TABLET UNDER THE TONGUE EVERY 5 MINUTES NEEDED FOR CHEST PAIN. DO NOT EXCEED A TOTAL OF 3 DOSES IN 15 MINUTES Rx Instructions: DISSOLVE ONE TABLET UNDER THE TONGUE EVERY 5 MINUTES NEEDED FOR CHEST PAIN. DO NOT EXCEED A TOTAL OF 3 DOSES IN 15 MINUTES hydrochlorothiazide 25 mg tablet 25 mg PO QAM Qty: 90 3RF metoprolol tartrate 50 mg tablet 50 mg PO BID 30 Days Qty: 60 11RF citalopram 20 mg tablet See Rx Instructions .ROUTE .COMPLEX Qty: 90 11RF Dose Instruction: TAKE 1 TABLET BY MOUTH EVERY DAY Rx Instructions: TAKE 1 TABLET BY MOUTH EVERY DAY losartan 100 mg tablet 100 mg PO DAILY Qty: 30 11RF Rx Instructions: MUST make follow-up for further refills alprazolam 0.5 mg tablet 0.5 mg PO DAILY Qty: 30 5RF hydrocodone-acetaminophen 5-325 mg tablet 1 tab PO Q6H PRN (Reason: pain) Qty: 30 0RF Miralax 17 gram/dose powder 17 g PO DAILY Qty: 510 0RF Rx Instructions: Take 1 scoop daily while taking pain medications. diclofenac sodium 50 mg tablet,delayed release (DR/EC) 50 mg PO Q12H Qty: 20 0RF Discharge Orders: Discharge ED (Routine); Ordered 10/10/24 Ordered By: Destiny Chou Referrals: Myron Valentino DO [Physician, Orthopedics] - 4-7 days Chari Bowman PA [Primary Care Provider, Unknown] Discharge Diet: Advance as tolerated Discharge Activity: Resume usual activity Patient Instructions: Knee Pain (ED) Print Language: Sao T[place]an Coding Level of Care Code ED Dev Technical Mgr for Parish Parikh
[2024-10-10 12:29] VITALS: BP 170/87; PULSE 60; O2SAT 93
--- NOTE | 2024-10-11 08:01 | DCPLANNER ---
messaged ortho for er f/u
== END 2024-10-10 12:41 | disposition home or self-care (01) ==
PROVIDERS: Emergency Provider Emergency Medicine; PCP Physician Assistant
DX: M25.561 Pain in right knee (principal); M79.604 Pain in right leg; Z79.82 Long term (current) use of aspirin; I25.10 Atherosclerotic heart disease of native coronary artery without angina pectoris; I10 Essential (primary) hypertension; Z95.1 Presence of aortocoronary bypass graft
CPT/HCPCS: 73562; 93971; 99284

== ENCOUNTER → 2024-10-27 07:51 | Outpatient (BNVA) | payer MEDICARE, OTHER, SELFPAY | PROVIDERS: PCP Physician Assistant; Visit Provider Physician Assistant | DX: M25.561 Pain in right knee (principal); M17.11 Unilateral primary osteoarthritis, right knee | CPT/HCPCS: 20610; 73560; 73565; 99213; J7318 ==

== ENCOUNTER → 2024-11-30 14:16 | Outpatient (BNVA) | payer MEDICARE, OTHER, SELFPAY | PROVIDERS: PCP Physician Assistant; Visit Provider Physician Assistant | DX: M17.12 Unilateral primary osteoarthritis, left knee (principal); Z01.89 Encounter for other specified special examinations | CPT/HCPCS: 20610; 73560; 73565; 99213; J7318 ==

== ENCOUNTER → 2025-02-01 14:27 | Outpatient (BNVA) | payer MEDICARE, OTHER, SELFPAY | PROVIDERS: PCP Physician Assistant; Visit Provider Physician Assistant | DX: M75.42 Impingement syndrome of left shoulder (principal); M17.11 Unilateral primary osteoarthritis, right knee | CPT/HCPCS: 20610; 73030; 99213; J3301; J9999 ==